=== PATIENT | female | born 1935 | race Caucasian/White ===

== ENCOUNTER 2016-08-11 09:01 | Day surgery (SDC) | payer MEDICARE, OTHER ==
[2016-08-10 11:57] LABS: HEMOGLOBIN 12.6 g/dL (12.0-16.0)
[2016-08-10 12:05] LABS: BUN (BLOOD UREA NITROGEN) 16 MG/DL (6-23); CHLORIDE, SERUM 102 MMOL/L (96-112); CREATININE 0.99 MG/DL (0.55-1.02); GFR AFRICAN AMERICAN 62 ML/MIN (>=60); GFR NON AFRICAN AMERICAN 54 ML/MIN (>=60); POTASSIUM, SERUM 4.7 MMOL/L (3.5-5.3); SODIUM, SERUM 140 MMOL/L (135-148)
[2016-08-10 12:07] LABS: CO2 (CARBON DIOXIDE) 30 MMOL/L (24-34); GLUCOSE, SERUM 79 MG/DL (60-99)
--- NOTE | ~2016-08-11 | OP ---
Record Of Operation [facility] [address] [place]. [address] NAME: MICKEY LARA : 35 STATUS : [facility]#: [id number] AGE: 81 ADM/REG DATE : 08/11/16 MR#: [id number] REPORT SERV DATE: 08/15/16 DICTATED BY: AKIN WHALEN DATE: 08/13/16 REPORT STATUS : Draft TRANSCRIBED BY: [email or web address] DATE: 08/13/16 DATE OF PROCEDURE: 08/11/2016 PREOPERATIVE DIAGNOSIS: Basal cell carcinoma of right premalar area. POSTOPERATIVE DIAGNOSIS: Basal cell carcinoma of right premalar area. PROCEDURE: Wide local excision of basal cell carcinoma with cheek advancement flap. FINDINGS: Right premalar basal cell carcinoma, final dimensions 1.9 cm x 1.5 cm with an advancement flap, which is larger than that estimated. Multiple margins were taken. Final margins negative for disease. COMPLICATIONS: None. ANESTHESIA: This was done under monitored anesthesia care. ESTIMATED BLOOD LOSS: 3 mL. Local with 1% lidocaine with 1:100,000 epinephrine, approximately 1.5 mL was utilized. INDICATION FOR PROCEDURE: This is an 80-year-old female with a basal cell carcinoma of the right cheek. She has indications for procedure as described. She described the risks and benefits of the procedure including blood loss, infection, larger defect, and need for further reconstruction. She voiced understanding and signed the consent. The consent was placed on chart at the time of operation. DESCRIPTION OF PROCEDURE: The patient is wheeled to the OR suite and placed on the OR table in supine position. An IV was placed and oxygen by nasal cannula was placed in her nose. She was situated and I would inject 1.5 mL of local in the area of the basal cell carcinoma and she was subsequently prepped and draped in a standard fashion for the procedure. I would do this using loupe magnification, headlight, and she was given propofol while I injected her. After she was prepped appropriately using a #15 C blade, I would make an incision 1-2 mm around the visualized portion of the lesion. This was approximately 1.2 cm x 1.2 cm initially. I would joseph the 12, 6, and 9 o'clock and 3 o'clock positions after this was excised. I would excise deeply to the level of the subcutaneous fat and circumferentially using a #15 C blade. This was sent off for frozen and came back as positive at 10, 12, and 9 to 6 o'clock positions, so I would take another 1-2 mm strip from this area. Pathologist came into the room and took this, came back, and there were two focal areas, which were positive, so I sent two more strips in the 7 to 8 o'clock area and the 10 to 12 o'clock area and these came back finally as negative, so my final defect was 1.9 cm x 1.5 cm. Originally, I planned on advancing a local flap from the middle labial fold, but after this size and the laxity in the area, I decided to do a cheek advancement from lateral to medial. I would make an incision from the superior aspect of the largely ovoid defect along the skin crease just below her lower eyelid laterally to her lateral cheek and I would come down into the medial portion into the incision itself. I would Record Of Operation [address] [place]. [address] NAME: MICKEY LARA : 35 STATUS : [facility] PAT#: [id number] AGE: 81 ADM/REG DATE : 08/11/16 MR#: [id number] REPORT SERV DATE: 08/15/16 DICTATED BY: AKIN WHALEN DATE: 08/13/16 REPORT STATUS : Draft TRANSCRIBED BY: ANNETTE DATE: 08/13/16 elevate deeply to these areas and then the subcutaneous fat with a thick flap going laterally. Once I had elevated all the areas, I would advance the cheek flap medially to fill the defect, actually this worked quite well. I would use 4-0 Vicryl sutures buried, simple interrupted to approximate the wound edges. I would place four of these across the medial aspect of the flap with good placement of the flap, minimal tension, and once this was accomplished, I would place two on the horizontal limb. Once I had good reapproximation of the edges of the flap, this was a L-shaped flap with a horizontal limb coming across the lower eyelid on the right hand side and then vertical end going from the medial aspect of the defect. I would then close the skin edges of the defect using running 6-0 Prolene blue suture for the length of the defect with good cosmetic effect. Once this was accomplished, I placed Mastisol and Steri-Strips after cleaning the skin, and the procedure was complete. At this point, she was subsequently returned to the care of anesthesiologist, awoken, and stably transferred to the recovery area. There are no complications. NIDIA/ANNETTE Akin Whalen M.D. / [id number] CC: Akin Whalen M.D. NO PCP
[~2016-08-11 09:01] MED LIST: ACET500CAP PO; ASAB PO; ASABAYER PO; ASMANEX INH; ATEN50 PO; CARD30 PO; CELEXA10 PO; CELEXA20 PO; COUMADIN3 MG PO; DILAUDID-51 MG/ML PO; ENDOCET1 TA1 PO; FLONASE NAS; HEMOCYTE324 MG PO; IMDUR30 PO; KDUR10 PO; KLOR-CON 1010 MEQ PO; L40 PO; LOVENOX SC; MOBIC15 MG PO; MVI PO; NEXIUM40 PO; NITROQUICK0.4 MG SL; NORV5 PO; OXYCOD PO; PERCOCET1 TA3 PO; PROVHFA INH; QVAR40 MC1 IN; SINGULAIR1 PO; SKELAXIN8 PO; X5 PO; XARELTO20 MG PO
== END 2016-08-11 13:52 | disposition home or self-care (01) ==
LOC: SDC 09:01
PROVIDERS: Otolaryngology
PROC: 0HX1XZZ Transfer Face Skin, External Approach (ICD-10-PCS; principal; 2016-08-11 09:45)
DX: C44.319 Basal cell carcinoma of skin of other parts of face (principal); J45.909 Unspecified asthma, uncomplicated; K21.9 Gastro-esophageal reflux disease without esophagitis; I10 Essential (primary) hypertension; G62.9 Polyneuropathy, unspecified; J44.9 Chronic obstructive pulmonary disease, unspecified; G47.33 Obstructive sleep apnea (adult) (pediatric); F41.9 Anxiety disorder, unspecified; E66.9 Obesity, unspecified; Z68.29 Body mass index [BMI] 29.0-29.9, adult; Z79.899 Other long term (current) drug therapy; Z88.1 Allergy status to other antibiotic agents; Z91.041 Radiographic dye allergy status; Z90.49 Acquired absence of other specified parts of digestive tract; Z98.890 Other specified postprocedural states; Z86.718 Personal history of other venous thrombosis and embolism; Z79.891 Long term (current) use of opiate analgesic; Z98.41 Cataract extraction status, right eye; Z98.42 Cataract extraction status, left eye
CPT/HCPCS: 80048; 85014; 85018; 88305; 88331; 93005; J0330; J2250; J2405; J3010